=== PATIENT | male | born 1985 | race Caucasian/White ===

== ENCOUNTER 2017-01-29 16:10 | Observation (INO) | payer OTHER ==
[~2017-01-29] VITALS: Ht 193 cm; Wt 74.8 kg
[2017-01-29 17:29] LABS: RED BLOOD COUNT 5.14 M/UL (4.20-5.50); WHITE BLOOD COUNT 6.8 K/UL (4.5-11.0)
[2017-01-29 18:36] LABS: BUN/CREATININE RATIO 8 (0-10)
[2017-01-30 07:56] LABS: RED BLOOD COUNT 4.9 M/UL (4.20-5.50); WHITE BLOOD COUNT 5.2 K/UL (4.5-11.0)
[2017-01-30] MEDS ORDERED: ASPIR 8181 MG PO (09:52)
[2017-01-30] MEDS ORDERED: LISINOPRIL2.5 MG PO (09:53)
[2017-01-30] MEDS ORDERED: COREG 12.5MG12.5 MG PO (09:53)
[2017-01-30] MEDS ORDERED: SUBOXONE 2 MG-1 EACH SL (09:55)
[2017-01-30] MEDS ORDERED: EFFEXOR XR75 MG PO (09:56)
== END 2017-01-30 17:08 | disposition home or self-care (01) ==
LOC: ER1 16:10 → M/S 20:05 → ZEROF 20:05 → M/S 01-30 08:02
PROVIDERS: Emergency Medicine; ADMIT Internal Medicine
DX: R50.9 Fever, unspecified (principal); F19.90 Other psychoactive substance use, unspecified, uncomplicated; I10 Essential (primary) hypertension; E87.2 Acidosis; F17.210 Nicotine dependence, cigarettes, uncomplicated; Z79.82 Long term (current) use of aspirin; Z79.899 Other long term (current) drug therapy; Z95.2 Presence of prosthetic heart valve
CPT/HCPCS: ECHO; 36415; 71010; 80053; 80307; 81001; 82550; 82553; 83605; 83874; 84484; 85025; 87040; 93005; 93306; 99284; G0378; J0696; J1650; J7030; J7050